=== PATIENT | female | born 1940 | race Caucasian/White ===

== ENCOUNTER 2023-07-01 13:24 | Emergency (ER) | payer MEDICARE, BC ==
[~2023-07-01] VITALS: Ht 165.1 cm; Wt 84.5 kg
[~2023-07-01 13:24] MED LIST: CALCIUM 1200 W/1 SGL PO; CIPRO 500MG TA500 MG PO; FLAGYL500 MG PO; FLONASE NASAL S16 GM NS; MOBIC15 MG PO; MULTIVITAMINS1 TA1 PO; QUESTRAN4 GM/9 GM PO; ULTRAM 50MG TAB50 MG PO; ZOCOR 10MG10 MG PO
[2023-07-01 13:42] VITALS: BP 169/101; TEMP 98.5
[2023-07-01] MEDS ORDERED: PERCOCET 325 MG1 TA2 PO (17:43)
[2023-07-01] MEDS ORDERED: FLEXERIL 1010 MG/TAB PO (17:43)
[2023-07-01 18:02] VITALS: PULSE 96
== END 2023-07-01 18:02 | disposition home or self-care (01) ==
LOC: COL.ER 13:24
DX: M54.50 Low back pain, unspecified (principal)
CPT/HCPCS: J2270; J2360